=== PATIENT | male | born 1955 | race Caucasian/White ===

== ENCOUNTER 2023-05-23 03:10 | Emergency (ER) | payer OTHER ==
[2023-05-23 03:16] VITALS: BMI 35.9
[2023-05-23 03:48] LABS: BASO % 0.7 % (0-2.0); EOS % 1.6 % (0-4.5); HEMATOCRIT 41.7 % (35.4-49); HEMOGLOBIN 14.2 GM/dL (11.7-16.9); LYMPH % 22.8 % (8-40); MCH 31.3 pg (25.7-33.7); MEAN CELL VOLUME 92.2 fl (80-96); MEAN PLT VOLUME 8.6 fl (7.5-11.1); MONO % 10.9 % (3.8-10.2); PLATELET COUNT 211 10^3/uL (134-434); RBC 4.53 M/mm3 (4.00-5.60); RDW 13.8 % (11.9-15.9)
[2023-05-23 04:19] LABS: POTASSIUM 4.1 mmol/L (3.5-5.1)
[2023-05-23 04:21] LABS: ALBUMIN 3.8 g/dl (3.4-5.0); BLOOD UREA NITROGEN 20.4 mg/dL (7-18); CALCIUM 8.5 mg/dL (8.5-10.1); MAGNESIUM 2.1 mg/dL (1.8-2.4)
[2023-05-23 04:24] LABS: CREATININE 1.2 mg/dL (0.55-1.3)
[2023-05-23 04:26] LABS: BILIRUBIN,TOTAL 0.4 mg/dL (0.2-1); TOT PROT 7.2 g/dl (6.4-8.2)
[2023-05-23 04:49] VITALS: BP 127/85; PULSE 55; RESP 15; TEMP 98.6
== END 2023-05-23 07:11 | disposition home or self-care (01) ==
LOC: JER 03:10
DX: R07.89 Other chest pain (principal); R68.83 Chills (without fever); M54.9 Dorsalgia, unspecified; R14.0 Abdominal distension (gaseous); Z20.822 Contact with and (suspected) exposure to COVID-19
CPT/HCPCS: 0241U-QW; 36415; 71046-TC-FY; 80053; 83690; 83735; 84484; 85025; 93005; 93010; 99285-25